=== PATIENT | male | born 1930 | race Caucasian/White ===

== ENCOUNTER 2019-04-23 12:35 | Emergency (ER) | payer OTHER ==
[2019-04-23] MEDS ORDERED: IV NS 0.9% 1,000 ML BAG IV ONE (13:00)
[2019-04-23] MEDS ORDERED: PIPERACILLIN /TAZOBACTAM 3.375 G in IV D5W 50 ML IV ONE (13:30)
[2019-04-23] MEDS ORDERED: IV NS 0.9% 1,000 ML IV ONE (13:30)
== END 2019-04-23 19:16 | disposition short-term general hospital (02) ==
DX: S00.81XA Abrasion of other part of head, initial encounter (principal); E86.0 Dehydration; E87.2 Acidosis; R62.7 Adult failure to thrive; R41.82 Altered mental status, unspecified; X58.XXXA Exposure to other specified factors, initial encounter; Y93.89 Activity, other specified; Y92.89 Other specified places as the place of occurrence of the external cause; Y99.8 Other external cause status
CPT/HCPCS: 36415; 70450; 71045; 76705; 80048; 80076; 81001; 83605 ×2; 84145; 84484; 85025; 85730; 87040 ×2; 87086; 93005; 96361; 96365; 99291; J2543; J7030 ×2; J7060